=== PATIENT | female | born 1995 | race Two or more races ===

== ENCOUNTER 2017-07-30 19:01 | Emergency (ER) | payer OTHER ==
[~2017-07-30] VITALS: Ht 162.6 cm; Wt 58.5 kg
[~2017-07-30 19:01] MED LIST: BEN50 PO; HYDR-3011 PO; TRIA15CR52 TOP; TRIA15CR55 TOP
[2017-07-30 19:11] VITALS: Ht 162.6 cm; Wt 58.5 kg
[2017-07-30 22:03] LABS: URINE BLOOD (Dip) POC Negative (NEGATIVE)
--- NOTE | 2017-07-30 22:03 | ERD ---
ER Documentation Chief Complaint Chief Complaint pelvic pain [id number]. +preg. -vag bleed, -vag discharge HPI 22-year-old female presents here to emergency department for complaints of pelvic pain for 2 weeks. Patient just found out that she was yesterday. Patient denies any vaginal itching vaginal bleeding or vaginal discharge. Patient is 1 para 0 0. LMP 07/09/2017. Patient denies any hematuria or dysuria. Patient denies any fever chills. Patient described the pelvic pain as cramping pain, 4/10 scale, intermittent pain. ROS All systems reviewed and are negative except as per history of present illness. Medications Home Meds Active Scripts Diphenhydramine Hcl* (Benadryl*) 50 Mg Cap, 50 MG PO BEDSIDE MEDICATION Y for ITCHING, #30 Prov:ELIAN SCHERER PA-C 05/26/15 Triamcinolone Acetonide (Triamcinolone Acetonide) 0.1% - 15 Gm Cream.gm., 1 APPLIC TOP BID for 7 Days, TUB applya thin layer to affected areas twice a day for 1-2 weeks. Do not apply on face Prov:ELIAN SCHERER PA-C 05/26/15 Triamcinolone Acetonide* (Kenalog*) 0.5%-15GM Cr, 1 APPLIC TOP BID, #1 EA Prov:ABBIE CARABALLO NP 04/28/15 Hydroxyzine Hcl* (Hydroxyzine Hcl*) 25 Mg Tablet, 25 MG PO Q8H Y for ITCHING, # 30 TAB Prov:ABBIE CARABALLO NP 04/28/15 Allergies Allergies: Coded Allergies: No Known Allergy (Unverified , 07/30/17) PMhx/Soc Medical and Surgical Hx: pt denies Medical Hx, pt denies Surgical Hx History of Surgery: No Anesthesia Reaction: No Hx Neurological Disorder: No Hx Respiratory Disorders: No Hx Cardiac Disorders: No Hx Psychiatric Problems: No Hx Miscellaneous Medical Probl: No Hx Alcohol Use: No Hx Substance Use: No Hx Tobacco Use: No Smoking Status: Never smoker FmHx Family History: No coronary disease, No diabetes, No other Physical Exam Vitals Vital Signs Date Time Temp Pulse Resp B/P Pulse Ox O2 Delivery O2 Flow Rate FiO2 07/30/17 19:11 99.2 88 18 137/80 100 Physical Exam GENERAL: The patient is well developed and appropriate for usual state of health, in no apparent distress. CHEST: Clear to auscultation bilaterally. There are no rales, wheezes or rhonchi. HEART: Regular rate and rhythm. No murmurs, clicks, rubs or gallops. No S3 or S4. ABDOMEN: Soft, nontender and nondistended. Good bowel sounds. No rebound or guarding. No gross peritonitis. No gross organomegaly or masses. No Jeffries sign or McBurney point tenderness. BACK: No midline or flank tenderness. EXTREMITIES: Equal pulses bilaterally. There is no peripheral clubbing, cyanosis or edema. No focal swelling or erythema. Full range of motion. Grossly neurovascularly intact. NEURO: Alert and oriented. Cranial nerves 2-12 intact. Motor strength in all 4 extremities with 5/5 strength. Sensation grossly intact. Normal speech and gait. SKIN: There is no apparent rash or petechia. The skin is warm and dry. HEMATOLOGIC AND LYMPHATIC: There is no evidence of excessive bruising or lymphedema. No gross cervical, axillary, or inguinal lymphadenopathy. Result Diagram: 07/30/172 Results 24 hrs Laboratory Tests Test 07/30/17 21:55 07/30/17 22:03 07/30/17 22:22 Urine Color YELLOW Urine Clarity CLEAR Urine pH 5.0 Urine Specific [place] 1.025 Urine Ketones NEGATIVEmg/dL Urine Nitrite NEGATIVEmg/dL Urine Bilirubin NEGATIVEmg/dL Urine Urobilinogen NEGATIVEmg/dL Urine Leukocyte Esterase NEGATIVELeu/ul Urine Hemoglobin NEGATIVEmg/dL Urine Glucose NEGATIVEmg/dL Urine Total Protein NEGATIVEmg/dl Bedside Urine pH (LAB) 6.0 Bedside Urine Protein (LAB) Negative Bedside Urine Glucose (UA) Negative Bedside Urine Ketones (LAB) Negative Bedside Urine Blood Negative Bedside Urine Nitrite (LAB) Negative Bedside Urine Leukocyte Esterase (L Negative White Blood Count 7.510^3/ul Red Blood Count 4.1310^6/ul Hemoglobin 11.9g/dl Hematocrit 35.2% Mean Corpuscular Volume 85.2fl Mean Corpuscular Hemoglobin 28.8pg Mean Corpuscular Hemoglobin Concent 33.8g/dl Red Cell Distribution Width 13.2% Platelet Count 76991^3/UL Mean Platelet Volume 11.8fl Neutrophils % 59.2% Lymphocytes % 32.3% Monocytes % 6.7% Eosinophils % 0.8% Basophils % 0.7% Nucleated Red Blood Cells % 0.0/100WBC Neutrophils # 4.410^3/ul Lymphocytes # 2.410^3/ul Monocytes # 0.510^3/ul Eosinophils # 0.110^3/ul Basophils # 0.110^3/ul Nucleated Red Blood Cells # 0.010^3/ul Beta HCG, Quantitative 794.0mIU/ml PROCEDURE: Obstetrical ultrasound, limited. CLINICAL INDICATION: Pelvic pain. TECHNIQUE: Multiple sonographic images of the pelvis were obtained utilizing a transabdominal technique. The images were reviewed on a PACS workstation. The patient refused endovaginal scanning. COMPARISON: None. FINDINGS: The uterus is visualized and measures 6.5 x 4.2 x 7.1 cm. No abnormal uterine mass is identified. The endometrial echo complex is homogeneous and measures 16 mm. No intrauterine is identified. There is no evidence for free fluid. The right ovary measures 2.3 x 1.6 x 2.2 cm and demonstrates normal flow. The left ovary is not visualized. No adnexal masses are identified. IMPRESSION: Mildly thickened endometrium with no intrauterine identified. Clinical beta-hCG correlation and follow-up is recommended. Left ovary not visualized. .Roberto Yoo MD, MD Date Time Electronically viewed and signed by .Roberto Yoo MD, on 07/30/2017 22:29 .T/ CC: ABBIE CARABALLO NP On reevaluation of the patient, patient does not have any pelvic pain at this time, has been having only on and off pelvic pain. I discussed this case with OB Laborist, Dr. Wilson, recommended a 48 hour follow-up for beta-hCG repeat an ultrasound repeat. At this time, patient does not have any vaginal bleeding. There is low suspicion for ectopic . Based on history most likely is very early . Procedures/MDM Medical Decision Making: Patient symptoms of pelvic pain nonspecific at this time, patient possibly have an early . No symptoms of any ovarian torsion, no symptoms of any ovarian ectopic . Beta-hCG is mildly elevated, possibly consistent with early . Pain is controlled at this time, 48 hour follow-up was recommended by the OB Laborist. There is low suspicion for abdominal emergencies at this time. Patients abdominal exam is normal at this time. Patients radiology exam does not show any abdominal emergencies at this time. There is low suspicion for appendicitis, cholecystitis , abdominal aortic aneurysms or peritonitis at this time. There is low suspicion for sepsis. Patient appears well and is hemodynamically stable. Disposition: Home. Condition: Stable Prescription Tylenol, pills Instructions: Patient is advised to take medications as prescribed. Patient is advised to rest, increase fluid intake and do brat diet for next 1-2 days and progress as tolerated. Patient is advised that if symptoms are worse, severe abdominal pain, uncontrolled vomiting, high fever, severe flank pain, worst signs and symptoms, to return to the emergency department immediately. Otherwise , patient can follow up here in the emergency department in 48 hours for repeat testing. Disclaimer: Inadvertent spelling and grammatical errors are likely due to EHR/ dictation software use and do not reflect on the overall quality of patient care. Also, please note that the electronic time recorded on this note does not necessarily reflect the actual time of the patient encounter. Departure Diagnosis: Primary Impression: Pelvic pain Additional Impression: Positive test Condition: Stable Patient Instructions: Pelvic Pain, Unknown Cause Additional Instructions: Patient is advised to take medications as prescribed. Patient is advised to rest , increase fluid intake and do brat diet for next 1-2 days and progress as tolerated. Patient is advised that if symptoms are worse, severe abdominal pain , uncontrolled vomiting, high fever, severe flank pain, worst signs and symptoms , to return to the emergency department immediately. Otherwise, patient can follow up here in the emergency department in 48 hours for repeat testing. ABBIE CARABALLO NP Jul 30, 2017 22:03
[2017-07-30 22:22] LABS: ADD UMIC NO; UR ASCORBIC ACID NEGATIVE (NEGATIVE); UR BILIRUBIN (Dip) NEGATIVE (NEGATIVE); UR BLOOD (Dip) NEGATIVE (NEGATIVE); UR CLARITY CLEAR (CLEAR); UR COLOR YELLOW (YELLOW); UR GLUCOSE (Dip) NEGATIVE (NEGATIVE); UR KETONES (Dip) NEGATIVE (NEGATIVE); UR LEUKOCYTE ESTERASE (Dip) NEGATIVE Leu/ul (NEGATIVE); UR NITRITE (Dip) NEGATIVE (NEGATIVE); UR SPECIFIC GRAVITY (Dip) 1.025 (1.003-1.030); UR TOTAL PROTEIN (Dip) NEGATIVE (NEGATIVE); UR UROBILINOGEN (Dip) NEGATIVE (NEGATIVE)
--- NOTE | 2017-07-30 22:29 | RADRPT ---
PROCEDURE: Obstetrical ultrasound, limited. CLINICAL INDICATION: Pelvic pain. TECHNIQUE: Multiple sonographic images of the pelvis were obtained utilizing a transabdominal candido hnique. The images were reviewed on a PACS workstation. The patient refused endovaginal scanning. COMPARISON: None. FINDINGS: The uterus is visualized and measures 6.5 x 4.2 x 7.1 cm. No abnormal uterine mass is identified. T he endometrial echo complex is homogeneous and measures 16 mm. No intrauterine is identifi ed. There is no evidence for free fluid. The right ovary measures 2.3 x 1.6 x 2.2 cm and demonstrates n ormal flow. The left ovary is not visualized. No adnexal masses are identified. IMPRESSION: Mildly thickened endometrium with no intrauterine identified. Clinical beta-hCG correlatio n and follow-up is recommended. Left ovary not visualized. .Roberto Yoo MD, MD Date Time Electronically viewed and signed by .Roberto Yoo MD, MD on 07/30/2017 22:29 .T/
[2017-07-30 22:45] LABS: BASOPHIL # 0.1 10^3/ul (0.0-0.1); BASOPHILS % 0.7 % (0.0-2.0); EOSINOPHILS # 0.1 10^3/ul (0.0-0.5); EOSINOPHILS % 0.8 % (0.0-7.0); HEMATOCRIT 35.2 % (37.0-47.0); HEMOGLOBIN 11.9 g/dl (12.0-16.0); LYMPHOCYTES # 2.4 10^3/ul (0.8-2.9); LYMPHOCYTES % 32.3 % (15.0-51.0); MEAN CORPUSCULAR HEMOGLOBIN 28.8 pg (29.0-33.0); MEAN CORPUSCULAR HGB CONC 33.8 g/dl (32.0-37.0); MEAN CORPUSCULAR VOLUME 85.2 fl (82.0-101.0); MEAN PLATELET VOLUME 11.8 fl (7.4-10.4); MONOCYTE # 0.5 10^3/ul (0.3-0.9); MONOCYTES % 6.7 % (0.0-11.0); NEUTROPHIL # 4.4 10^3/ul (1.6-7.5); NEUTROPHILS % 59.2 % (39.0-77.0); PLATELET COUNT 245 10^3/UL (140-415); RED BLOOD COUNT 4.13 10^6/ul (4.20-5.40); RED CELL DISTRIBUTION WIDTH 13.2 % (11.5-14.5); WHITE BLOOD COUNT 7.5 10^3/ul (4.8-10.8)
[2017-07-31] MEDS ORDERED: ACET500C5 PO (00:01)
[2017-07-31 00:29] VITALS: BP 131/76; PULSE 84; RESP 18; TEMP 98.8
== END 2017-07-31 00:30 | disposition home or self-care (01) ==
LOC: FTE 19:01
DX: O26.891 Other specified pregnancy related conditions, first trimester (principal); R10.2 Pelvic and perineal pain; Z3A.01 Less than 8 weeks gestation of pregnancy
CPT/HCPCS: 76801; 81003; 84702; 85025; 86900; 86901; Z7502

== ENCOUNTER 2017-08-10 07:23 | Emergency (ER) | payer OTHER ==
[~2017-08-10] VITALS: Ht 152.4 cm; Wt 58.0 kg
[~2017-08-10 07:23] MED LIST changes: +ACET500C5 PO
[2017-08-10 07:26] VITALS: Ht 152.4 cm; Wt 58.0 kg
[2017-08-10 09:26] LABS: ADD UMIC NO; UR ASCORBIC ACID NEGATIVE (NEGATIVE); UR BILIRUBIN (Dip) NEGATIVE (NEGATIVE); UR BLOOD (Dip) NEGATIVE (NEGATIVE); UR CLARITY CLEAR (CLEAR); UR COLOR YELLOW (YELLOW); UR GLUCOSE (Dip) NEGATIVE (NEGATIVE); UR KETONES (Dip) NEGATIVE (NEGATIVE); UR LEUKOCYTE ESTERASE (Dip) NEGATIVE Leu/ul (NEGATIVE); UR NITRITE (Dip) NEGATIVE (NEGATIVE); UR SPECIFIC GRAVITY (Dip) 1.017 (1.003-1.030); UR TOTAL PROTEIN (Dip) NEGATIVE (NEGATIVE); UR UROBILINOGEN (Dip) NEGATIVE (NEGATIVE)
[2017-08-10 09:27] LABS: BASOPHILS % 0.5 % (0.0-2.0); EOSINOPHILS % 0.7 % (0.0-7.0); HEMATOCRIT 36.3 % (37.0-47.0); HEMOGLOBIN 12.2 g/dl (12.0-16.0); LYMPHOCYTES # 1.9 10^3/ul (0.8-2.9); LYMPHOCYTES % 33.9 % (15.0-51.0); MEAN CORPUSCULAR HEMOGLOBIN 29.2 pg (29.0-33.0); MEAN CORPUSCULAR HGB CONC 33.6 g/dl (32.0-37.0); MEAN CORPUSCULAR VOLUME 86.8 fl (82.0-101.0); MEAN PLATELET VOLUME 11.3 fl (7.4-10.4); MONOCYTE # 0.3 10^3/ul (0.3-0.9); MONOCYTES % 5.3 % (0.0-11.0); NEUTROPHIL # 3.3 10^3/ul (1.6-7.5); NEUTROPHILS % 59.4 % (39.0-77.0); PLATELET COUNT 237 10^3/UL (140-415); RED BLOOD COUNT 4.18 10^6/ul (4.20-5.40); WHITE BLOOD COUNT 5.5 10^3/ul (4.8-10.8)
[2017-08-10 09:46] LABS: ALBUMIN 4.3 g/dl (3.3-4.9); ALBUMIN/GLOBULIN RATIO 1.34; BILIRUBIN,INDIRECT 0.3 mg/dl (0-1.1); BILIRUBIN,TOTAL 0.3 mg/dl (0.2-1.3); CALCIUM 9.2 mg/dl (8.4-10.2); CREATININE 0.49 mg/dl (0.44-1.00); POTASSIUM 3.6 mmol/L (3.5-5.1); TOTAL PROTEIN 7.5 g/dl (6.1-8.1)
[2017-08-10 09:52] LABS: INR 0.92; PROTIME 12.4 Sec (11.9-14.9)
[2017-08-10 09:53] LABS: PARTIAL THROMBOPLASTIN TIME 30.3 Sec (25.0-35.0)
--- NOTE | 2017-08-10 10:16 | RADRPT ---
PROCEDURE: US OB. CLINICAL INDICATION: Vaginal bleeding in . TECHNIQUE: Transabdominal and endovaginal imaging of the uterus is available for review COMPARISON: US PELVIS 07/30/2017 FINDINGS: There is a single intrauterine with a mean sac diameter of 1.3 cm, giving an estimated ges tational age of 6 weeks 0 days by ultrasound criteria. No pole is detected. A yolk sac is pre sent. A small subchorionic hemorrhage is identified. The ovaries demonstrate a left ovarian corpus l uteum cyst. IMPRESSION: 1. Single intrauterine with an estimated gestational age of 6 weeks 0 days by ultrasound criteria. No pole is identified, likely secondary to early dates. Repeat pelvic ultrasound is recommended in 1 week. 2. Small subchorionic hemorrhage. RPTAT: HH .Janet Spring MD, Date Time Electronically viewed and signed by .Janet Spring MD, on 08/10/2017 10:15 .G/
--- NOTE | 2017-08-10 11:11 | ERD ---
ER Documentation Chief Complaint Chief Complaint vag bleed started today , 5 weeks preg HPI 22-year-old female who presents emergency department for vaginal spotting, bleeding today. Stated that she is 5 weeks . Denies headache, dizziness, blurred vision, neck pain, shoulder pain, chest pain, back pain, nausea, vomiting, diarrhea, constipation, dysuria, being sexually active, trauma , injury, falls, recent travel, recent exposure to any illness, recent antibiotic use in the last 3 months, fever, chills. LMP: 07/01/2017. PATRICA: 04/03/2018. A0. ROS All systems reviewed and are negative except as per history of present illness. Medications Home Meds Active Scripts Vit W-Ca,Fe,FA(<1 mg) ( Vitamins) 1 Each Tablet, 1 EACH PO DAILY, #30 TAB Prov:KATARINAILADAVE DEL ROSARIOAR F 08/10/17 Acetaminophen* (Tylophen*) 500 Mg Capsule, 1 CAP PO Q6H Y for PAIN AND OR ELEVATED TEMP, #20 CAP Prov:KATARINAILADAVE DEL ROSARIOAR F 08/10/17 Acetaminophen* (Tylophen*) 500 Mg Capsule, 1 CAP PO Q6H Y for PAIN AND OR ELEVATED TEMP, #20 CAP Prov:ABBIE CARABALLO NP 07/31/17 Diphenhydramine Hcl* (Benadryl*) 50 Mg Cap, 50 MG PO BEDSIDE MEDICATION Y for ITCHING, #30 Prov:ELIAN SCHERER PA-C 05/26/15 Triamcinolone Acetonide (Triamcinolone Acetonide) 0.1% - 15 Gm Cream.gm., 1 APPLIC TOP BID for 7 Days, TUB applya thin layer to affected areas twice a day for 1-2 weeks. Do not apply on face Prov:ELIAN SCHERER PA-C 05/26/15 Triamcinolone Acetonide* (Kenalog*) 0.5%-15GM Cr, 1 APPLIC TOP BID, #1 EA Prov:ABBIE CARABALLO NP 04/28/15 Hydroxyzine Hcl* (Hydroxyzine Hcl*) 25 Mg Tablet, 25 MG PO Q8H Y for ITCHING, # 30 TAB Prov:ABBIE CARABALLO NP 04/28/15 Allergies Allergies: Coded Allergies: No Known Allergy (Unverified , 08/10/17) PMhx/Soc Medical and Surgical Hx: pt denies Medical Hx, pt denies Surgical Hx History of Surgery: No Anesthesia Reaction: No Hx Neurological Disorder: No Hx Respiratory Disorders: No Hx Cardiac Disorders: No Hx Psychiatric Problems: No Hx Miscellaneous Medical Probl: No Hx Alcohol Use: No Hx Substance Use: No Hx Tobacco Use: No Smoking Status: Never smoker Physical Exam Vitals Vital Signs Date Time Temp Pulse Resp B/P Pulse Ox O2 Delivery O2 Flow Rate FiO2 08/10/17 07:26 98.0 16 71 96/49 99 Physical Exam Const: Well-appearing. Not in acute respiratory distress. Head: Atraumatic Eyes: Normal Conjunctiva ENT: Normal External Ears, Nose and Mouth. Neck: Full range of motion..~ No meningismus. Resp: Clear to auscultation bilaterally Cardio: Regular rate and rhythm, no murmurs Abd: Soft, non tender, non distended. Normal bowel sounds Skin: No petechiae or rashes. No skin tenting. No signs of dehydration. Skin appears normal for her initially. Back: No midline or flank tenderness. No CVA tenderness. Ext: No cyanosis, or edema. Neur: Awake and alert. No neurological deficits. Psych: Normal Mood and Affect Result Diagram: 08/10/17 0911 08/10/17 0911 Results 24 hrs Laboratory Tests Test 08/10/17 09:00 08/10/17 09:11 Urine Color YELLOW Urine Clarity CLEAR Urine pH 5.0 Urine Specific [place] 1.017 Urine Ketones NEGATIVEmg/dL Urine Nitrite NEGATIVEmg/dL Urine Bilirubin NEGATIVEmg/dL Urine Urobilinogen NEGATIVEmg/dL Urine Leukocyte Esterase NEGATIVELeu/ul Urine Hemoglobin NEGATIVEmg/dL Urine Glucose NEGATIVEmg/dL Urine Total Protein NEGATIVEmg/dl White Blood Count 5.510^3/ul Red Blood Count 4.1810^6/ul Hemoglobin 12.2g/dl Hematocrit 36.3% Mean Corpuscular Volume 86.8fl Mean Corpuscular Hemoglobin 29.2pg Mean Corpuscular Hemoglobin Concent 33.6g/dl Red Cell Distribution Width 13.0% Platelet Count 52335^3/UL Mean Platelet Volume 11.3fl Neutrophils % 59.4% Lymphocytes % 33.9% Monocytes % 5.3% Eosinophils % 0.7% Basophils % 0.5% Nucleated Red Blood Cells % 0.0/100WBC Neutrophils # 3.310^3/ul Lymphocytes # 1.910^3/ul Monocytes # 0.310^3/ul Eosinophils # 0.010^3/ul Basophils # 0.010^3/ul Nucleated Red Blood Cells # 0.010^3/ul Prothrombin Time 12.4Sec Prothrombin Time Ratio 1.0 INR International Normalized Ratio 0.92 Activated Partial Thromboplast Time 30.3Sec Sodium Level 139mmol/L Potassium Level 3.6mmol/L Chloride Level 104mmol/L Carbon Dioxide Level 24mmol/L Anion Gap 15 Blood Urea Nitrogen 6mg/dl Creatinine 0.49mg/dl Glucose Level 93mg/dl Calcium Level 9.2mg/dl Total Bilirubin 0.3mg/dl Direct Bilirubin 0.00mg/dl Indirect Bilirubin 0.3mg/dl Aspartate Amino Transf (AST/SGOT) 20IU/L Alanine Aminotransferase (ALT/SGPT) 27IU/L Alkaline Phosphatase 55IU/L Total Protein 7.5g/dl Albumin 4.3g/dl Globulin 3.20g/dl Albumin/Globulin Ratio 1.34 Amylase Level 65U/L Lipase 48U/L Beta HCG, Quantitative 89460.0mIU/ml Procedures/MDM OB ultrasound: Single intrauterine with an estimated gestational age of 6 weeks 0 days by ultrasound criteria. No pole is identified, likely secondary to early dates. Repeat pelvic ultrasound is recommended in 1 week. Small subchorionic hemorrhage. Type and Rh: A+. Beta hCG quantitative: 16,722.0 Blood works: Unremarkable. Urinalysis: Unremarkable. Differential diagnosis: I have low suspicion for ectopic given the ultrasound result, hemorrhagic shock given the patient denies active bleeding at this time and her skin appears normal, vital signs are unremarkable. Final diagnosis: Vaginal bleeding in . Prescription: Tylenol. vitamins. Follow-up with OB in the next 24-48 hours for a reevaluation and repeat ultrasound and blood works. Come back here in the emergency department for any new symptoms or any worsening symptoms. All questions and concerns are answered. Patient verbalized understanding and agreed with the plan of care. Reevaluation: Patient denies active bleeding. Denies pain. Hemodynamically stable on discharge. Departure Diagnosis: Primary Impression: Vaginal bleeding in patient at less than 20 weeks gestation Condition: Stable Additional Instructions: Follow-up with OB in the next 24-48 hours for a reevaluation and repeat ultrasound and blood works. Come back here in the emergency department for any new symptoms or any worsening symptoms. All questions and concerns are answered. Patient verbalized understanding and agreed with the plan of care. MARYSE ANAYA Aug 10, 2017 11:11
[2017-08-10] MEDS ORDERED: ACET500C5 PO (11:12)
[2017-08-10] MEDS ORDERED: PREN1TAB79 PO (11:14)
== END 2017-08-10 11:30 | disposition home or self-care (01) ==
LOC: FTE 07:23
DX: O20.9 Hemorrhage in early pregnancy, unspecified (principal); R10.2 Pelvic and perineal pain; Z3A.01 Less than 8 weeks gestation of pregnancy
CPT/HCPCS: 76801; 76817; 80053; 81003; 82150; 83690; 84702; 85025; 85610; 85730; 86900; 86901; 87086; Z7502

== ENCOUNTER 2017-08-13 09:29 | Emergency (ER) | payer OTHER ==
[~2017-08-13] VITALS: Ht 154.9 cm; Wt 58.2 kg
[~2017-08-13 09:29] MED LIST changes: +PREN1TAB79 PO
[2017-08-13 09:30] VITALS: Ht 154.9 cm; Wt 58.2 kg
--- NOTE | 2017-08-13 11:16 | RADRPT ---
AMENDMENT: 08/13/2017 11:25:18 AM Janet Spring M.d PROCEDURE: US OB. CLINICAL INDICATION: Vaginal bleeding in . TECHNIQUE: Transabdominal and endovaginal imaging of the gravid uterus is available for review COMPARISON: US PELVIS 08/10/2017 FINDINGS: There is a single intrauterine with a crown-rump length of 0.3 cm, giving an estimated ges tational age of 6 weeks 0 days by ultrasound criteria. No heart tones are detected. No subch orionic hemorrhage is identified. The ovaries are unremarkable. IMPRESSION: Single intrauterine with an estimated gestational age of 6 weeks 0 days by ultrasound crit eria. No heart tones are detected, which may be secondary to early dates. Repeat pelvic ultra sound is recommended in 1 week. RPTAT: PROCEDURE: US OB. CLINICAL INDICATION: Vaginal bleeding in . TECHNIQUE: Transabdominal and endovaginal imaging of the gravid uterus is available for review COMPARISON: None available FINDINGS: There is a single intrauterine with a crown-rump length of 0.3 cm, giving an estimated ges tational age of 6 weeks 0 days by ultrasound criteria. No heart tones are detected. No subch orionic hemorrhage is identified. The ovaries are unremarkable. IMPRESSION: Single intrauterine with an estimated gestational age of 6 weeks 0 days by ultrasound crit eria. No heart tones are detected. Findings are suspicious for early failed . Repe at pelvic ultrasound is recommended in 1 week. RPTAT: .Janet Spring MD, MD Date Time Electronically viewed and signed by .Janet Spring MD, on 08/13/2017 11:25 .G/
--- NOTE | 2017-08-13 12:07 | ERD ---
ER Documentation Chief Complaint Chief Complaint VAG BLEED , ONSET TODAY , LMP 06/27/17 HPI This 22-year-old female who is a is here for vaginal bleeding. The patient was seen here 3 days ago for vaginal bleeding had an ultrasound that demonstrated a 6 week but there are no crown-rump length identified within hCG of 16,500 approximately. The patient states that she woke this morning with a little bit heavier bleeding is considered to be mild and is a bit more than spotting some mild cramps but no clots or discharge or syncope or back pain. Patient says she has no pain at this time ROS All systems reviewed and are negative except as per history of present illness. Medications Home Meds Active Scripts Vit W-Ca,Fe,FA(<1 mg) ( Vitamins) 1 Each Tablet, 1 EACH PO DAILY, #30 TAB Prov:KATARINAILADAVE DEL ROSARIOAR F 08/10/17 Acetaminophen* (Tylophen*) 500 Mg Capsule, 1 CAP PO Q6H Y for PAIN AND OR ELEVATED TEMP, #20 CAP Prov:DAVE ANAYAAR F 08/10/17 Acetaminophen* (Tylophen*) 500 Mg Capsule, 1 CAP PO Q6H Y for PAIN AND OR ELEVATED TEMP, #20 CAP Prov:ABBIE CARABALLO NP 07/31/17 Diphenhydramine Hcl* (Benadryl*) 50 Mg Cap, 50 MG PO BEDSIDE MEDICATION Y for ITCHING, #30 Prov:ELIAN SCHERER PA-C 05/26/15 Triamcinolone Acetonide (Triamcinolone Acetonide) 0.1% - 15 Gm Cream.gm., 1 APPLIC TOP BID for 7 Days, TUB applya thin layer to affected areas twice a day for 1-2 weeks. Do not apply on face Prov:ELIAN SCHERER PA-C 05/26/15 Triamcinolone Acetonide* (Kenalog*) 0.5%-15GM Cr, 1 APPLIC TOP BID, #1 EA Prov:ABBIE CARABALLO NP 04/28/15 Hydroxyzine Hcl* (Hydroxyzine Hcl*) 25 Mg Tablet, 25 MG PO Q8H Y for ITCHING, # 30 TAB Prov:ABBIE CARABALLO NP 04/28/15 Allergies Allergies: Coded Allergies: No Known Allergy (Unverified , 08/10/17) PMhx/Soc History of Surgery: No Anesthesia Reaction: No Hx Neurological Disorder: No Hx Respiratory Disorders: No Hx Cardiac Disorders: No Hx Psychiatric Problems: No Hx Miscellaneous Medical Probl: No Hx Alcohol Use: No Hx Substance Use: No Hx Tobacco Use: No FmHx Family History: No coronary disease Physical Exam Vitals Vital Signs Date Time Temp Pulse Resp B/P Pulse Ox O2 Delivery O2 Flow Rate FiO2 08/13/17 09:30 98.4 60 16 106/59 100 Physical Exam Const: Well-developed, well-nourished Head: Atraumatic, normocephalic Eyes: Normal Conjunctiva, PERRLA, EOMI, normal sclera, no nystagmus ENT: Normal External Ears, Nose and Mouth, moist mucus membranes. Neck: Full range of motion. No meningismus, no lymphadenopathy.Well- developed, well-nourishedAtraumatic, normocephalicNormal Conjunctiva, PERRLA, EOMI, normal sclera, no nystagmusNormal External Ears, Nose and Mouth, moist mucus membranes.Full range of motion. No meningismus, no lymphadenopathy.Clear to auscultation bilaterally, no wheezing, rhonchi, rales Resp: Clear to auscultation bilaterally, no wheezing, rhonchi, rales Cardio: Regular rate and rhythm, no murmurs, S1 S2 present Abd: Soft, non tender x 4, non distended. Normal bowel sounds, no guarding or rebound, no pulsitile abdominal masses or bruits Skin: No petechiae or rashes, no ecchymosis , no maculopapular rash Back: No midline or flank tenderness Ext: No cyanosis, or edema, FROM x 4, normal inspection, neurovascularly intact x 4 Neur: Awake and alert, STR 5/5 x 4, sensation intact x 4, no focal findings, cerebellum intact Psych: Normal Mood and Affect Results 24 hrs Laboratory Tests Test 08/13/17 09:55 Beta HCG, Quantitative 12246.0mIU/ml Procedures/MDM AMENDMENT: 08/13/2017 11:25:18 AM Janet Spring M.d PROCEDURE: US OB. CLINICAL INDICATION: Vaginal bleeding in . TECHNIQUE: Transabdominal and endovaginal imaging of the gravid uterus is available for review COMPARISON: US PELVIS 08/10/2017 FINDINGS: There is a single intrauterine with a crown-rump length of 0.3 cm, giving an estimated gestational age of 6 weeks 0 days by ultrasound criteria. No heart tones are detected. No subchorionic hemorrhage is identified. The ovaries are unremarkable. IMPRESSION: Single intrauterine with an estimated gestational age of 6 weeks 0 days by ultrasound criteria. No heart tones are detected, which may be secondary to early dates. Repeat pelvic ultrasound is recommended in 1 week. RPTAT: PROCEDURE: US OB. CLINICAL INDICATION: Vaginal bleeding in . TECHNIQUE: Transabdominal and endovaginal imaging of the gravid uterus is available for review COMPARISON: None available FINDINGS: There is a single intrauterine with a crown-rump length of 0.3 cm, giving an estimated gestational age of 6 weeks 0 days by ultrasound criteria. No heart tones are detected. No subchorionic hemorrhage is identified. The ovaries are unremarkable. IMPRESSION: Single intrauterine with an estimated gestational age of 6 weeks 0 days by ultrasound criteria. No heart tones are detected. Findings are suspicious for early failed . Repeat pelvic ultrasound is recommended in 1 week. RPTAT: .Janet Spring MD, Date Time Electronically viewed and signed by .Janet Spring MD, on 08/13/2017 11 :25 .G/ CC: MARTHA SENA DO Patient's hCG is risen to 23,000, blood type is A+, ultrasound shows a 6 week but there is no heart tones. His possible heart tones are missed on the last ultrasound or the patient had a live that is now demise. Patient's hCG is high enough that he should see a heartbeat as well as the size is big enough that he should see a heartbeat. Patient likely has a demise. Did advise her however to get a repeat hCG in 2 days to confirm this likely need another ultrasound as there is discrepancy in the past 2 ultrasounds and hCG risings. Gave her vaginal bleeding precautions and signs and symptoms for which to return Departure Diagnosis: Primary Impression: Missed Condition: Stable Patient Instructions: Missed Miscarriage MARTHA SENA DO Aug 13, 2017 12:07
== END 2017-08-13 13:23 | disposition home or self-care (01) ==
LOC: FTE 09:29
DX: O02.1 Missed abortion (principal)
CPT/HCPCS: 36415; 76801; 76817; 84702; 86900; 86901; Z7502

== ENCOUNTER 2017-08-16 10:36 | Emergency (ER) | payer OTHER ==
[~2017-08-16] VITALS: Wt 59.3 kg
--- NOTE | 2017-08-16 11:09 | ERD ---
ER Documentation Chief Complaint Chief Complaint PT HERE FOR RECHECH FOR , VAG SPOTTING, NO PAIN HPI 22-year-old female, recently seen 3 days ago with a 6 week single intrauterine without heart tones comes to emergency department for recheck for vaginal spotting. Patient describes very slight vaginal spotting but no pelvic pain. She was told that she had no heart tones seen on the ultrasound, is here for recheck. She has no complaints, she denies chest pain, shortness breath, dizziness. She denies fevers or chills. ROS All systems reviewed and are negative except as per history of present illness. Medications Home Meds Active Scripts Vit W-Ca,Fe,FA(<1 mg) ( Vitamins) 1 Each Tablet, 1 EACH PO DAILY, #30 TAB Prov:PASILABAN,KLAR F 08/10/17 Acetaminophen* (Tylophen*) 500 Mg Capsule, 1 CAP PO Q6H Y for PAIN AND OR ELEVATED TEMP, #20 CAP Prov:PASILABAN,KLAR F 08/10/17 Acetaminophen* (Tylophen*) 500 Mg Capsule, 1 CAP PO Q6H Y for PAIN AND OR ELEVATED TEMP, #20 CAP Prov:ABBIE CARABALLO NP 07/31/17 Diphenhydramine Hcl* (Benadryl*) 50 Mg Cap, 50 MG PO BEDSIDE MEDICATION Y for ITCHING, #30 Prov:ELIAN SCHERER PA-C 05/26/15 Triamcinolone Acetonide (Triamcinolone Acetonide) 0.1% - 15 Gm Cream.gm., 1 APPLIC TOP BID for 7 Days, TUB applya thin layer to affected areas twice a day for 1-2 weeks. Do not apply on face Prov:ELIAN SCHERER PA-C 05/26/15 Triamcinolone Acetonide* (Kenalog*) 0.5%-15GM Cr, 1 APPLIC TOP BID, #1 EA Prov:ABBIE CARABALLO NP 04/28/15 Hydroxyzine Hcl* (Hydroxyzine Hcl*) 25 Mg Tablet, 25 MG PO Q8H Y for ITCHING, # 30 TAB Prov:ABBIE CARABALLO NP 04/28/15 Allergies Allergies: Coded Allergies: No Known Allergy (Unverified , 08/16/17) PMhx/Soc Medical and Surgical Hx: pt denies Medical Hx, pt denies Surgical Hx History of Surgery: No Anesthesia Reaction: No Hx Neurological Disorder: No Hx Respiratory Disorders: No Hx Cardiac Disorders: No Hx Psychiatric Problems: No Hx Miscellaneous Medical Probl: No Hx Alcohol Use: No Hx Substance Use: No Hx Tobacco Use: No Smoking Status: Never smoker Physical Exam Vitals Vital Signs Date Time Temp Pulse Resp B/P Pulse Ox O2 Delivery O2 Flow Rate FiO2 08/16/17 10:39 98.1 104 18 134/62 100 Physical Exam General: Well-developed, well-nourished. The patient appears in no acute distress. HEENT: Head is normocephalic, atraumatic. No scleral icterus. Neck: Supple. Nontender. Lungs: Clear to auscultation. Normal air movement. Heart: Regular rate and rhythm. S1 and S2 are normal. No murmurs, gallops, or rubs. Abdomen: Soft, nontender, nondistended. Bowel sounds are normoactive. Extremities: No clubbing or cyanosis. Normal pulses. Moving extremities x 4. No weakness. Neurologic: Alert and oriented 3. No focal deficits. Skin: Normal turgor. No rash or lesions. Result Diagram: 08/16/17 1055 Results 24 hrs Laboratory Tests Test 08/16/17 10:55 White Blood Count 5.810^3/ul Red Blood Count 4.3010^6/ul Hemoglobin 12.5g/dl Hematocrit 37.7% Mean Corpuscular Volume 87.7fl Mean Corpuscular Hemoglobin 29.1pg Mean Corpuscular Hemoglobin Concent 33.2g/dl Red Cell Distribution Width 13.0% Platelet Count 83243^3/UL Mean Platelet Volume 12.8fl Neutrophils % 61.2% Lymphocytes % 32.6% Monocytes % 5.2% Eosinophils % 0.3% Basophils % 0.5% Nucleated Red Blood Cells % 0.0/100WBC Neutrophils # 3.510^3/ul Lymphocytes # 1.910^3/ul Monocytes # 0.310^3/ul Eosinophils # 0.010^3/ul Basophils # 0.010^3/ul Nucleated Red Blood Cells # 0.010^3/ul Beta HCG, Quantitative 03196.0mIU/ml Procedures/MDM MEDICAL DECISION MAKIN-year-old female comes to recheck for recently diagnosed missed . Her previous visit on July 30 that her beta quantitative hCG was 794, no evidence of intrauterine at the time, and type and Rh was A+. Then she presented again on August 10 with a beta quant of 16,722 with an IUP at 6 weeks, no heart tones, with positive subchorionic hemorrhage. Then on August 13 she presented again with a beta quant of 23,519 with a 6 week 0 days single intrauterine with no heart tones. Today her beta quantitative hCG has increased to over 30,000 from the previous 23,000. Due to this, I have advised patient that we may need another ultrasound today to compare from the previous study. She states "I don't want another ultrasound". She tells me she has an appointment in 4-5 days with her doctor who is Dr. Pedraza she prefers to do another ultrasound within a week's period of time for since last one. I do agree that this is appropriate given that she has not had any signs of ectopic , and her previous ultrasound did show an IUP although no heart tones. She is hemodynamically stable, her CBC is normal and she will be discharged home with copies of her workup today. Departure Diagnosis: Primary Impression: Vaginal bleeding in patient at less than 20 weeks gestation Condition: JOSEPHINE Joy PA-C Aug 16, 2017 11:09
[2017-08-16 11:53] LABS: BASOPHILS % 0.5 % (0.0-2.0); EOSINOPHILS % 0.3 % (0.0-7.0); HEMATOCRIT 37.7 % (37.0-47.0); HEMOGLOBIN 12.5 g/dl (12.0-16.0); LYMPHOCYTES # 1.9 10^3/ul (0.8-2.9); LYMPHOCYTES % 32.6 % (15.0-51.0); MEAN CORPUSCULAR HEMOGLOBIN 29.1 pg (29.0-33.0); MEAN CORPUSCULAR HGB CONC 33.2 g/dl (32.0-37.0); MEAN CORPUSCULAR VOLUME 87.7 fl (82.0-101.0); MEAN PLATELET VOLUME 12.8 fl (7.4-10.4); MONOCYTE # 0.3 10^3/ul (0.3-0.9); MONOCYTES % 5.2 % (0.0-11.0); NEUTROPHIL # 3.5 10^3/ul (1.6-7.5); NEUTROPHILS % 61.2 % (39.0-77.0); PLATELET COUNT 172 10^3/UL (140-415); WHITE BLOOD COUNT 5.8 10^3/ul (4.8-10.8)
== END 2017-08-16 13:20 | disposition home or self-care (01) ==
LOC: FTE 10:36
DX: O20.9 Hemorrhage in early pregnancy, unspecified (principal); Z3A.01 Less than 8 weeks gestation of pregnancy
CPT/HCPCS: 36415; 84702; 85025; Z7502; 99283

== ENCOUNTER 2017-08-30 11:11 | Emergency (ER) | END 2017-08-30 14:57 | disposition home or self-care (01) ==

== ENCOUNTER 2018-11-03 13:13 | Outpatient (CLI) | payer OTHER ==
[~2018-11-03] VITALS: Ht 149.9 cm; Wt 69.9 kg
[~2018-11-03 13:13] MED LIST changes: -HYDR-3011 PO; +HYDR-843 PO
[2018-11-03 14:05] VITALS: BP 109/68; PULSE 68; RESP 18; Ht 149.9 cm; Wt 69.9 kg
--- NOTE | 2018-11-03 16:38 | PN ---
Triage Information Date/Time Reason for visit: Uterine contractions Weeks of Gestation 39+ /Para 1/0 Diabetes: none Hypertention: none Objective Vital Signs Date Temp Pulse Resp B/P (MAP) Pulse Ox O2 O2 Flow FiO2 Time Delivery Rate 11/03/18 98.5 68 18 109/68 Room Air 14:05 (82) Heart Rate: 140's Contractions: 6-10 Minutes Apart Disposition: Discharge Assessment/Plan CX closed wants her to get discharged and return in 2 days for NST BPP Precautions discussed Questions discussed Follow up with her provider JUAN RIOS M.D. Nov 03, 2018 16:38
--- NOTE | 2018-11-03 16:59 | TRIAGE ---
OB Triage Datetime Report Generated by CPN: 11/03/2018 16:59 Datetime: 11/03/2018 15:57 Labor Evaluation Frequency: IRREGULAR Monitor Mode: External Duration (sec)2399: 60-110 Quality: Mild Pattern: Normal: <= 5 Contractions in 10 Minutes Resting Tone [place]: Relaxed Heart Rate FHR Baseline Rate: 135 Monitor Mode: External US FHR Baseline Changes: No Baseline Change Variability: Moderate 6-25 bpm Accelerations: 15X15 Decelerations: None Category: Category II Datetime: 11/03/2018 15:03 Labor Evaluation Frequency: IRREGULAR Monitor Mode: External Duration (sec)2399: 60-100 Quality: Mild Pattern: Normal: <= 5 Contractions in 10 Minutes Resting Tone [place]: Relaxed Heart Rate FHR Baseline Rate: 140 Monitor Mode: External US FHR Baseline Changes: No Baseline Change Variability: Moderate 6-25 bpm Accelerations: 15X15 Decelerations: None Category: Category I Datetime: 11/03/2018 14:13 Labor Evaluation Frequency: IRREGULAR Monitor Mode: External Duration (sec)2399: 60-70 Quality: Mild Pattern: Normal: <= 5 Contractions in 10 Minutes Resting Tone [place]: Relaxed Heart Rate FHR Baseline Rate: 145 Monitor Mode: External US Variability: Moderate 6-25 bpm Accelerations: 15X15 Decelerations: None Category: Category I Datetime: 11/03/2018 14:12 Assessment Type: Triage Maternal Assessment Level of Consciousness: Fully Conscious DTR's/Clonus: DTRs 2+; No Clonus Headache: Denies Blurred Vision: No Respiratory Effort: Unlabored; Regular Rhythm; Equal Expansion Breath Sounds, Left: Clear and Equal Breath Sounds, Right: Clear and Equal Nausea/Vomiting: Denies RUQ Epigastric Pain: Denies Lower Extremities Edema: None Degree: None Upper Extremities Edema: None Degree: None Facial Edema: None Fall Risk Assessment History of Falling: (0) No Secondary Diagnosis: (0) No Ambulatory Aid: (0) Bedrest/Nurse Assist IV Therapy: (0) No Gait: (0) Normal/Bedrest/Immobile Mental Status: (0) Oriented to Own Ability Fall Score: 0 Fall Risk Score Definition: No Risk: No action required Datetime: 11/03/2018 14:09 Time of Arrival: 11/03/2018 13:08 EGA: 39.5 Arrived By: Ambulatory Arrived From: Home Chief Complaint: UC'S DURING THE NIGHT Movement: Present Contractions: Denies/Absent Rupture of Membranes: Denies Vaginal Bleeding: None Vaginal Discharge: Denies Recent Sexual Intercouse: Denies Abdominal Trauma: Not Applicable Patient Complaints: Contractions; Other Initial Plan: NST AND BPP Datetime: 11/03/2018 14:02 Vaginal Exam Dilatation (cms): 1.0 Effacement (%): 30 Station: -2 Exam By: Kenisha ABREU
== END 2018-11-03 16:42 | disposition home or self-care (01) ==
LOC: OBT 13:13 → L-D 13:15 → OBT 16:42
PROVIDERS: ATTEND Obstetrics & Gynecology
DX: O47.1 False labor at or after 37 completed weeks of gestation (principal); Z3A.39 39 weeks gestation of pregnancy
CPT/HCPCS: 76818; Z7500; G0463

== ENCOUNTER 2018-11-05 03:34 | Inpatient (IN) | payer OTHER ==
[~2018-11-05] VITALS: Ht 149.9 cm; Wt 70.1 kg
[~2018-11-05 03:34] MED LIST changes: -ACET500C5 PO; -BEN50 PO; -HYDR-843 PO; -TRIA15CR52 TOP; -TRIA15CR55 TOP
[2018-11-05] MEDS ORDERED: FERR134T PO (03:48)
[2018-11-05 03:49] VITALS: BP 115/63; PULSE 73; RESP 18
[2018-11-05] MEDS ORDERED: BUTORPHANOL 1 MG INJ IV PRN (05:00)
[2018-11-05] MEDS ORDERED: OXYTOCIN 30 UNITS/LR 500 ML IV SCH ×2 (05:00→08:30)
[2018-11-05] MEDS ORDERED: CARBOPROST 250 MCG INJ IM PRN (05:00)
[2018-11-05] MEDS ORDERED: METHYLERGONOVINE 0.2 MG INJ IM PRN (05:00)
[2018-11-05] MEDS ORDERED: LIDOCAINE 1% (MPF) 30 ML INJ INJ PRN (05:00)
[2018-11-05] MEDS ORDERED: MISOPROSTOL 200 MCG TAB PR PRN (05:00)
[2018-11-05] MEDS ORDERED: IBUPROFEN 600 MG TAB PO PRN (05:00)
[2018-11-05] MEDS ORDERED: BUTORPHANOL 2 MG INJ IV PRN (05:00)
[2018-11-05] MEDS ORDERED: OXYTOCIN 30 UNITS/LR 500 ML IV PRN (05:00)
--- NOTE | 2018-11-05 05:01 | TRIAGE ---
OB Triage Datetime Report Generated by CPN: 11/05/2018 05:00 Datetime: 11/05/2018 04:25 Stage of : OB Triage Datetime: 11/05/2018 04:18 Membrane Status: Intact Datetime: 11/05/2018 04:15 Stage of : OB Triage Labor Evaluation Frequency: 3-5 Monitor Mode: External Duration (sec)2399: 40-50 Quality: Moderate Pattern: Normal: <= 5 Contractions in 10 Minutes Resting Tone [place]: Relaxed Heart Rate FHR Baseline Rate: 140 Monitor Mode: External US FHR Baseline Changes: No Baseline Change Variability: Moderate 6-25 bpm Accelerations: 15X15 Decelerations: None Category: Category I Vaginal Exam Dilatation (cms): 3.0 Effacement (%): 80 Station: -2 Exam By: Tramaine Avitia Membrane Status: Intact Vaginal Bleeding: None Cervix, Consistency: Soft Cervix, Position: Posterior Presentation 'A': Cephalic Datetime: 11/05/2018 03:51 Time of Arrival: 11/05/2018 03:30 EGA: 40.0 Arrived By: Ambulatory Arrived From: Home Chief Complaint: c/o ucs Movement: Present Contractions: Regular Time Contractions Began: 11/05/2018 02:30 Contractions: Q5 Rupture of Membranes: Denies Vaginal Bleeding: None Vaginal Discharge: Denies Recent Sexual Intercouse: Denies Abdominal Trauma: Not Applicable Patient Complaints: Contractions Time Provider Notified: 11/05/2018 04:25 Provider Notified: Dr Cartwright Initial Plan: EFM,SVE Datetime: 11/05/2018 03:43 Stage of : OB Triage Maternal Assessment Level of Consciousness: Fully Conscious Headache: Denies Blurred Vision: No Respiratory Effort: Unlabored Nausea/Vomiting: Denies RUQ Epigastric Pain: Denies Facial Edema: None Monitor Mode: External Quality: Moderate Pattern: Normal: <= 5 Contractions in 10 Minutes Resting Tone [place]: Relaxed Heart Rate FHR Baseline Rate: 140 Monitor Mode: External US Pain Assessment Pain Scale: 7 Pain Presence: Intermittent Pain Type: Contraction Pain Location: Abdomen; Back Datetime: 11/03/2018 14:12 Fall Risk Assessment Fall Score: 0 Fall Risk Score Definition: No Risk: No action required Datetime: 11/03/2018 14:09 EGA: 39.5
[2018-11-05] MEDS: LACTATED RINGER'S 1,000 ML IV SCH ×4 (05:23→22:53)
--- NOTE | 2018-11-05 19:12 | HP ---
Date/Time of Note Date/Time of Note DATE: 11/05/18 TIME: 19:10 OB - History Hx of Present Free Text/Dictation 23 years old P0010 at 40 weeks in labor GBS negative cervix 8/80%-2 arom thin mec FH reassuring Plan routine intrapartum care Last Menstrual Period: Jan 29, 2018 Estimated Due Date: Nov 05, 2018 : 2 Para: 0 Care: Good Care Ultrasounds: Normal mid trimester US Past Family/Social History * Past Medical, Surgical, Family and Obstetric Histories reviewed from chart. OB Admission Exam Vital Signs Vital Signs Vital Signs Date Temp Pulse Resp B/P (MAP) Pulse Ox O2 O2 Flow FiO2 Time Delivery Rate 11/05/18 98.3 73 18 115/63 Room Air 03:49 (80) Last 72 hours Lab Results CBC & BMP 11/05/18 05:00 PATRICIA WAHL M.D. Nov 05, 2018 19:12
[2018-11-05] MEDS ORDERED: MINERAL OIL LIGHT 10 ML VIAL TOP ONE (19:30)
[2018-11-05] MEDS: LACTATED RINGER'S 1,000 ML IV PRN (21:25)
--- NOTE | 2018-11-05 21:26 | PREAC ---
Date/Time of Note Date/Time of Note DATE: 11/05/18 TIME: 21:25 Anesthesia Eval and Record Evaluation Time Pre-Procedure Interview DATE: 11/05/18 TIME: 21:25 Age 23 Sex female NPO: 8 hrs Preoperative diagnosis IUP Planned procedure L&D Epidural Past Medical History Past Medical History: None Surgery & Anesthesia Issues No known issue Meds Anticoagulation: No Beta Candie within 24 hr: No Reason Beta Candie not given: Pt. not on B-Candie Active Scripts Vit W-Ca,Fe,FA(<1 mg) ( Vitamins) 1 Each Tablet, 1 EACH PO DAILY, #30 TAB Prov:MARYSE ANAYA 08/10/17 Reported Medications Ferrous Sulfate (Iron) 134 Mg Tablet, 134 MG PO DAILY, TAB 11/05/18 Discontinued Scripts Acetaminophen* (Tylophen*) 500 Mg Capsule, 1 CAP PO Q6H PRN for PAIN AND OR ELEVATED TEMP, #20 CAP Prov:MARYSE ANAYA F 08/10/17 Acetaminophen* (Tylophen*) 500 Mg Capsule, 1 CAP PO Q6H PRN for PAIN AND OR ELEVATED TEMP, #20 CAP Prov:ABBIE CARABALLO NP 07/31/17 Diphenhydramine Hcl* (Benadryl*) 50 Mg Cap, 50 MG PO BEDSIDE MEDICATION PRN for ITCHING, #30 Prov:ELIAN SCHERER PA-C 05/26/15 Triamcinolone Acetonide (Triamcinolone Acetonide) 0.1% - 15 Gm Cream.gm., 1 APPLIC TOP BID for 7 Days, TUB applya thin layer to affected areas twice a day for 1-2 weeks. Do not apply on face Prov:ELIAN SCHERER PA-C 05/26/15 Triamcinolone Acetonide* (Kenalog*) 0.5%-15GM Cr, 1 APPLIC TOP BID, #1 EA Prov:ABBIE CARABALLO NP 04/28/15 Hydroxyzine Hcl* (Hydroxyzine Hcl*) 25 Mg Tablet, 25 MG PO Q8H PRN for ITCHING, #30 TAB Prov:ABBIE CARABALLO NP 04/28/15 Current Medications Lactated Ringer's 1,000 ml @ 125 mls/hr Q8H IV Last administered on 11/05/18at 20:11; Admin Dose 125 MLS/HR; Start 11/05/18 at 04:38 Butorphanol Tartrate (Stadol) 1 mg Q2H PRN IV .PAIN; Start 11/05/18 at 05:00 Butorphanol Tartrate (Stadol) 2 mg Q2H PRN IV .PAIN; Start 11/05/18 at 05:00 Lidocaine (Xylocaine 1% (Mpf)) 30 ml ONCE PRN INJ .EPISIOTOMY; Start 11/05/18 at 05:00 Oxytocin/Lactated Ringer's 500 ml @ 500 mls/hr ONCE POST IV ; Start 11/05/18 at 05:00 Oxytocin/Lactated Ringer's 500 ml @ 125 mls/hr POST IV ; Start 11/05/18 at 05:00 Ibuprofen (Motrin) 600 mg ONCE PRN PO .PAIN 1-5; Start 11/05/18 at 05:00 Lactated Ringer's 1,000 ml @ 2,000 mls/hr Q30M PRN IV .ANESTHESIA; Start 11/05/18 at 04:38 Oxytocin/Lactated Ringer's 500 ml @ 0 mls/hr ONCE PRN IV .VAGINAL BLEEDING; Start 11/05/18 at 05:00 Methylergonovine Maleate (Methergine) 0.2 mg ONCE PRN IM .VAGINAL BLEEDING; Start 11/05/18 at 05:00 Carboprost Tromethamine (Hemabate) 250 mcg ONCE PRN IM .VAGINAL BLEEDING; Start 11/05/18 at 05:00 Misoprostol (Cytotec) 1,000 mcg ONCE PRN MI .VAGINAL BLEEDING; Start 11/05/18 at 05:00 Oxytocin/Lactated Ringer's 500 ml @ 0 mls/hr FOR AUGMENTATION IV Last administered on 11/05/18at 10:00; Admin Dose 1 MLS/HR; Start 11/05/18 at 08:30 Meds reviewed: Yes Allergies Coded Allergies: No Known Allergy (Unverified , 11/05/18) Allergies Reviewed: Yes Labs/Studies Labs Reviewed: Reviewed by anesthesiologist Result Diagram: 11/05/18 0500 Laboratory Tests 11/05/18 05:00 Blood Bank Test 11/05/18 05:00 Antibody Screen NEGATIVE Blood Type A POSITIVE Rh Immune Globulin Candidate NO test: Positive Studies: ECG Pre-procedure Exam Last vitals Vital Signs Date Temp Pulse Resp B/P (MAP) Pulse Ox O2 O2 Flow FiO2 Time Delivery Rate 11/05/18 98.3 73 18 115/63 Room Air 03:49 (80) Airway: Adequate mouth opening, Adequate thyromental dist Mallampati: Mallampati II Teeth: Normal Lung: Normal Heart: Normal ASA Physical Status ASA physical status: 2 Emergency: None Planned Anesthetic Neuraxial: Epidural Planned Pain Management Epidural Pre-operative Attestations Prior to commencing anesthesia and surgery, the patient was re-evaluated, there was verification of: *The patient's identity *The results of appropriate recent lab work and preoperative vital signs *The above evaluation not changing prior to induction *Anesthetic plan, risk benefits, alternative and complications discussed with patient/family; questions answered; patient/family understands, accepts and wishes to proceed. JASON PAYTON MD Nov 05, 2018 21:26
[2018-11-05] MEDS ORDERED: ROPIVACAINE 0.2% 100 ML ONE (21:39)
[2018-11-06] MEDS ORDERED: OXYTOCIN 30 UNITS/LR 500 ML IV SCH ×2 (01:00→01:12)
[2018-11-06] MEDS ORDERED: METHYLERGONOVINE 0.2 MG INJ IM PRN ×2 (01:00→01:30)
[2018-11-06] MEDS ORDERED: MISOPROSTOL 200 MCG TAB PR PRN ×2 (01:00→01:30)
[2018-11-06] MEDS ORDERED: OXYTOCIN 30 UNITS/LR 500 ML IV PRN ×2 (01:00→01:30)
[2018-11-06] MEDS ORDERED: CARBOPROST 250 MCG INJ IM PRN ×2 (01:00→01:30)
[2018-11-06] MEDS ORDERED: CEFAZOLIN 2 GM/50 ML (PMX) 50 ML IVPB SCH (01:00)
--- NOTE | 2018-11-06 01:11 | QN ---
Documentation Comment see H&P [id number] PATRICIA WAHL M.D. Nov 06, 2018 01:11
[2018-11-06] MEDS ORDERED: HYDROCODONE/APAP (5/325) TAB PO PRN (01:30)
[2018-11-06] MEDS ORDERED: NACL 0.9% 3 ML SYG IV SCH (01:30)
[2018-11-06] MEDS ORDERED: KETOROLAC 30 MG INJ IM PRN (01:30)
[2018-11-06] MEDS: LACTATED RINGER'S 1,000 ML IV PRN (01:31)
[2018-11-06] MEDS: CEFAZOLIN 1 GM/50 ML (PMX) 50 ML IVPB SCH ×3 (01:59→18:25)
[2018-11-06] MEDS ORDERED: OXYTOCIN 10 UNIT INJ ONE ×2 (02:08→02:26)
[2018-11-06] MEDS ORDERED: ONDANSETRON 4 MG INJ ONE (02:08)
[2018-11-06] MEDS ORDERED: PHENYLephrine (100 MCG/ML) 5ML SYG ONE (02:21)
[2018-11-06] MEDS ORDERED: morphine SULFATE/PF (10 MG/10 ML) INJ ONE (02:23)
[2018-11-06] MEDS ORDERED: MIDAZOLAM 1 MG/ML 2 ML INJ ONE (02:35)
--- NOTE | 2018-11-06 02:45 | QN ---
Documentation Comment see op note [id number] PATRICIA WAHL M.D. Nov 06, 2018 02:45
[2018-11-06] MEDS ORDERED: DIPHENHYDRAMINE 50 MG INJ IV PRN (03:00)
[2018-11-06] MEDS ORDERED: ONDANSETRON 4 MG INJ IV PRN (03:00)
[2018-11-06] MEDS ORDERED: morphine 2 MG INJ IV PRN (03:00)
[2018-11-06] MEDS ORDERED: NALOXONE (0.4 MG/ML) INJ IV PRN (03:00)
--- NOTE | 2018-11-06 03:04 | PAC ---
Date/Time of Note Date/Time of Note DATE: 11/06/18 TIME: 03:03 Post-Anesthesia Notes Post-Anesthesia Note Last documented vital signs Vital Signs Date Temp Pulse Resp B/P (MAP) Pulse Ox O2 O2 Flow FiO2 Time Delivery Rate 11/05/18 98.3 73 18 115/63 Room Air 03:49 (80) Activity: WNL Respiratory function: WNL Cardiovascular function: WNL Mental status: Baseline Pain reasonably controlled: Yes Hydration appropriate: Yes Nausea/Vomiting absent: Yes Comments BP:112/56,P:78, Spo2:100%,T:98,8 JASON PAYTON MD Nov 06, 2018 03:04
[2018-11-06] MEDS: OXYTOCIN 30 UNITS/LR 500 ML IV SCH ×2 (03:26→07:43)
--- NOTE | 2018-11-06 03:46 | HP ---
DATE OF ADMISSION: 11/05/2018 HISTORY OF PRESENT ILLNESS: The patient is a 23-year-old para 0-0-0-0 who came to the hospital yeste rday in labor, was progress to fully dilation; however, now with arrest of descent for primary C-sect ion. PAST MEDICAL HISTORY: None. PAST SURGICAL HISTORY: None. ALLERGIES: NO KNOWN ALLERGIES. SOCIAL HISTORY: She denies any toxic habits. FAMILY HISTORY: Noncontributory. OBSTETRICAL HISTORY: Consistent with 1 spontaneous . REVIEW OF SYSTEMS: Within normal limits. LABORATORY TESTS: Consistent with HIV negative, hepatitis C negative, T4, T3, TSH was normal. Blood type is A positive, antibody negative. Pap smear was normal, rubella immune, VDRL nonreactive. Uri ne culture was negative. Gonorrhea and chlamydia was negative. GCT was 108. GBS was negative. CBC upon admission consistent with WBC of 7.8, hemoglobin of 11, hematocrit of 33.4 and platelets of 140 . heart was reassuring. Meredith every 2 to 3 minutes. PHYSICAL EXAMINATION: VITAL SIGNS: Within normal limits. Temperature of 98.3, heart rate of 73, respiratory 18, blood pre ssure 115/63. GENERAL: She appeared to be in no apparent distress. HEART: Regular rate and rhythm. LUNGS: Clear to auscultation bilaterally. ABDOMEN: Gravid, nontender. EXTREMITIES: +1, +2 edema bilaterally. PELVIC: Consistent with full dilation, 0 to +1 station. ASSESSMENT AND PLAN: 1. This is a 23-year-old with a para 0-0-1-0, at 40 weeks and 1 day, arrest of descent for primary C -section. Patient understands the risks of the procedure such as risk of bleeding, infection, damage to internal organs, risk of transfusion, anesthesia. She understands the benefits of the procedure will be the decrease of and maternal morbidity and mortality secondary to arrest of descent. S he understands the alternative would be to continue vaginal trial. All questions answered. Dictated By: PATRICIA WAHL MD, RA/ROD Conf#: [id number] DID#: [id number]
[2018-11-06] MEDS: KETOROLAC 30 MG INJ IV PRN ×2 (03:50→19:10)
--- NOTE | 2018-11-06 04:02 | OPR ---
DATE OF OPERATION: 11/06/2018 PREOPERATIVE DIAGNOSIS: A 23-year-old with para 0-0-1-0, at 40 weeks and 1 day, arrest of descent. POSTOPERATIVE DIAGNOSIS: A 23-year-old with para 0-0-1-0, at 40 weeks and 1 day, arrest of descent. PROCEDURE: Primary via Pfannenstiel skin incision. SURGEON: Patricia Wahl MD. SURGICAL DRESSING MAKER: Dr. Whelan. ANESTHESIA: Epidural anesthesia by Dr. Grant. FINDINGS: Boy, Apgars 8 and 9, vertex, OP presentation. Normal appearing ovaries, tubes and uterus. DISPOSITION: Stable, back to recovery room. COMPLICATIONS: None. ESTIMATED BLOOD LOSS: 700 mL. URINE OUTPUT: 250 mL clear urine at the end of the procedure. One dose of Methergine was given for uterine atony. ANTIBIOTICS GIVEN: 2 grams of Ancef. PROCEDURE: After risks, benefits and alternatives of the procedure were discussed with the patient. The patient signed consent was taken to the operating room where epidural anesthesia was found to be adequate. She was prepped and draped in normal sterile fashion in the dorsal supine position with a leftward tilt. A Pfannenstiel skin incision was then made with the scalpel and carried throughout t he underlying layer of the fascia with the Bovie. The fascia was then incised medially, extended lat erally using Bovie instrument. The fascia was then superiorly and inferiorly from the rect us abdominis muscles using the Bovie instrument. Rectus abdominis muscles were then latera lly, peritoneum entered sharply, stretched laterally manually and sharply. Bladder flap was then cre ated using the Metzenbaum scissors. Bladder blade was then inserted to protect the bladder. Uterus incision created using the scalpel and carried laterally manually. Infant was then removed without a ny complications. Nose and mouth were suctioned. Cord clamped and cut. was handed off to e waiting nurse. Cord blood collected. The placenta was removed manually. Uterus was exteriorized and cleared of all clots and debris. Uterine atony was noted. One dose of Methergine was given. Ut erus incision was then repaired using #1 chromic stitch in a running locked fashion. Good approximat ion and good hemostasis was noted. Gutters were then cleared of all clots and debris. Uterus was th en placed back into the pelvis. Rectus abdominis muscles were then reapproximated using 2-0 chromic stitch interrupted figure. Fascia was then reapproximated using #1 Vicryl stitch in a running fashio n. Subcutaneous layer irrigated and dried. Subcutaneous layer was then reapproximated using 2-0 andre in stitch in interrupted figure. Skin was then closed using the stapler. Abdominal pads placed on t he incision to create tamponade. All instrument count, lap count and needle count found to be correc t x3. The patient was taken back to the recovery room in stable condition awakened. Dictated By: PATRICIA WAHL MD, RA/ROD Conf#: [id number] DID#: [id number]
[2018-11-06 06:13] VITALS: BP 109/67; PULSE 86; RESP 18
[2018-11-06 08:00] VITALS: BP 107/69; PULSE 95; RESP 18
[2018-11-06] MEDS: LACTATED RINGER'S 1,000 ML IV SCH ×2 (11:53→20:31)
[2018-11-06 12:00] VITALS: BP 108/65; PULSE 100; RESP 18
[2018-11-06 16:00] VITALS: BP 100/59; PULSE 101; RESP 18
[2018-11-06 20:00] VITALS: BP 105/53; PULSE 105; RESP 18
[2018-11-07] VITALS: BP 103/58; PULSE 98; RESP 20
[2018-11-07] MEDS: KETOROLAC 30 MG INJ IV PRN (00:29)
[2018-11-07 04:00] VITALS: BP 103/63; PULSE 89; RESP 20
[2018-11-07] MEDS: LACTATED RINGER'S 1,000 ML IV SCH ×2 (04:38→12:38)
[2018-11-07 08:00] VITALS: BP 103/55; PULSE 93; RESP 18
[2018-11-07] MEDS: HYDROCODONE/APAP (5/325) TAB PO PRN (10:27)
[2018-11-07] MEDS ORDERED: LANOLIN HPA 1 PKT TOP PRN (12:00)
[2018-11-07 16:00] VITALS: BP 114/57; PULSE 82; RESP 18
--- NOTE | 2018-11-07 17:02 | QN ---
Documentation Comment see d/c note [id number] PATRICIA WAHL M.D. Nov 07, 2018 17:02
--- NOTE | 2018-11-07 17:03 | DS ---
Date/Time of Note Date/Time of Note DATE: 11/07/18 TIME: 17:02 Discharge Summary Admission/Discharge Info Admit Date/Time Nov 05, 2018 at 04:25 Discharge Date/Time 11/08/18 Patient Condition: Good Procedures C/S Hospital Course 11/06/18 Primary CS Home Meds Active Scripts Vit W-Ca,Fe,FA(<1 mg) ( Vitamins) 1 Each Tablet, 1 EACH PO DAILY, #30 TAB Prov:MARYSE ANAYA 08/10/17 Reported Medications Ferrous Sulfate (Iron) 134 Mg Tablet, 134 MG PO DAILY, TAB 11/05/18 Discontinued Scripts Acetaminophen* (Tylophen*) 500 Mg Capsule, 1 CAP PO Q6H PRN for PAIN AND OR ELEVATED TEMP, #20 CAP Prov:MARYSE ANAYA 08/10/17 Acetaminophen* (Tylophen*) 500 Mg Capsule, 1 CAP PO Q6H PRN for PAIN AND OR ELEVATED TEMP, #20 CAP Prov:ABBIE CARABALLO NP 07/31/17 Diphenhydramine Hcl* (Benadryl*) 50 Mg Cap, 50 MG PO BEDSIDE MEDICATION PRN for ITCHING, #30 Prov:ELIAN SCHERER PA-C 05/26/15 Triamcinolone Acetonide (Triamcinolone Acetonide) 0.1% - 15 Gm Cream.gm., 1 APPLIC TOP BID for 7 Days, TUB applya thin layer to affected areas twice a day for 1-2 weeks. Do not apply on face Prov:ELIAN SCHERER PA-C 05/26/15 Triamcinolone Acetonide* (Kenalog*) 0.5%-15GM Cr, 1 APPLIC TOP BID, #1 EA Prov:ABBIE CARABALLO NP 04/28/15 Hydroxyzine Hcl* (Hydroxyzine Hcl*) 25 Mg Tablet, 25 MG PO Q8H PRN for ITCHING, #30 TAB Prov:ABBIE CARABALLO NP 04/28/15 Primary Care Provider Not On Staff Doctor Time spent on discharge: < 30 minutes Pending Labs Laboratory Tests Test 11/07/18 06:15 Lab Scanned Report [facility] [id number] PATRICIA WAHL M.D. Nov 07, 2018 17:03
--- NOTE | 2018-11-07 17:25 | OPR ---
DATE OF OPERATION: 11/07/2018 The patient had a on 11/06/2018. Please see operative note for the surgery. Postop day #1 , the patient was doing well. Vital signs stable. CBC was stable. She was encouraged to ambulate a nd use pain medication p.r.n. pain. Postop day #2, the patient will be discharged home with prescrip tion for [place] and Motrin and she will follow up with me on Saturday for staple removal. Dictated By: PATRICIA WAHL MD, RA/ROD Conf#: [id number] DID#: [id number]
[2018-11-07 20:10] VITALS: BP 106/62; PULSE 70; RESP 17
[2018-11-08] MEDS: HYDROCODONE/APAP (5/325) TAB PO PRN (00:30)
[2018-11-08 04:20] VITALS: BP 106/51; PULSE 72; RESP 19
[2018-11-08] MEDS: IBUPROFEN 600 MG TAB PO PRN ×2 (06:06→13:29)
[2018-11-08 08:00] VITALS: BP 99/59; PULSE 71; RESP 18
[2018-11-08 15:49] VITALS: BP 109/53; PULSE 68; RESP 18
[2018-11-08 19:50] VITALS: BP 103/55; PULSE 80; RESP 18
[2018-11-09 04:00] VITALS: BP 117/80; PULSE 78; RESP 19
[2018-11-09 09:15] VITALS: BP 123/59; PULSE 89; RESP 16
[2018-11-09 16:00] VITALS: BP 111/77; PULSE 90; RESP 16
--- NOTE | 2018-11-17 11:24 | DELSUM ---
Delivery Summary A-C Datetime Report Generated by CPN: 11/17/2018 11:20 DELIVERY PERSONNEL Alteration Worker: Monae Manjarrez MATERNAL INFORMATION Delivery Anesthesia: Epidural Medications in Delivery: SEE ANESTHESIA RECORDS Delivery QBL (ml): 700 Placenta Cultured: No Maternal Complications: Prolong Labor >20Hrs; Prolong 2nd Stage >2Hrs LABOR SUMMARY EDC: 11/05/2018 00:00 No. Babies in Womb: 1 Attempted: No Labor Anesthesia: Epidural LABOR INFORMATION Reason for Induction: Not Applicable Onset of Labor: 11/05/2018 02:30 Complete Dilatation: 11/05/2018 22:51 Oxytocin: Augmentation Group B Beta Strep: Negative Antibiotics # of Doses: ANCEF 2GM Antibiotics Time of Last Dose: 11/06/2018 01:59 Steroids Given: None Reason Steroids Not Administered: Not Applicable MEMBRANES Membranes Rupture Method: Artificial Rupture of Membranes: 11/05/2018 19:06 Length of Rupture (hr): 7.30 Amniotic Fluid Color: Light Meconium Amniotic Fluid Amount: Moderate Amniotic Fluid Odor: None STAGES OF LABOR Stage 1 hr: 20 Stage 1 min: 21 Stage 2 hr: 3 Stage 2 min: 33 Stage 3 hr: 0 Stage 3 min: 1 Total Time in Labor hr: 23 Total Time in Labor min: 55 VAGINAL DELIVERY Sponge Count Correct: Yes; Vaginal Sweep Performed CSECTION DELIVERY Primary Indication: Arrest of Descent Other Primary Indication: intolerance to labor/pushing Secondary Indication: Nonreassuring Stat CSection Urgency: Non Elective CSection Incidence: Primary Labor: Labor Elective: N/A CSection Incision: Lower Uterine Transverse BABY A INFORMATION Delivery Date/Time: 11/06/2018 02:24 Method of Delivery: Born in Route : No : N/A Forceps: N/A Vacuum Extraction: Successful Shoulder Dystocia : N/A SHOULDER DYSTOCIA BABY A Infant Delivery Date/Time: 11/06/2018 02:24 PRESENTATION/POSITION BABY A Presentation: Cephalic Cephalic Presentation: Vertex Vertex Position: Left Occipital Posterior Breech Presentation: N/A PLACENTA INFORMATION BABY A Placenta Delivery Time : 11/06/2018 02:25 Placenta Method of Delivery: Manual Removal Placenta Status: Delivered SCORES BABY A Heart Rate 1 min: >100 bpm Resp Effort 1 min: Good Cry Reflex Irritability 1 min: Cough/Sneeze/Pulls Away Muscle Tone 1 min: Some Flexion of Extrem Color 1 min: Blue/Pale Resuscitation Effort 1 min: Tactile Stimulation; Oxygen SCORE 1 MIN: 7 Heart Rate 5 min: >100 bpm Resp Effort 5 min: Good Cry Reflex Irritability 5 min: Cough/Sneeze/Pulls Away Muscle Tone 5 min: Active Motion Color 5 min: Body [place], Extremit Blue Resuscitation Effort 5 min: Tactile Stimulation SCORE 5 MIN: 9 INFORMATION BABY A Gestational Age at Delivery: 40.1 Gestational Status: Full Term- 39- 40.6 Weeks Outcome : Liveborn Condition : Stable Infant Sex: Male IDENTIFICATION/MEDS BABY A ID Band Number: [id number] ID Band Location: Right Leg; Left Arm Sensor Applied: Yes Sensor Number: [id number] Sensor Location : Cord Clamp Vitamin K Given : Not Given Erythromycin Given: Not Given WEIGHT/LENGTH BABY A Infant Birthweight (gm): 3410 Weight (lb): 7 Infant Weight (oz): 8 Infant Length (in): 19.00 Length (cm): 48.26 CORD INFORMATION BABY A No. Cord Vessels: 3 Nuchal Cord : Around Neck x1, Loose Cord Blood Taken: Yes Banking/Donate Info: NONE Infant Suction: Mouth; Nose; Pharynx ASSESSMENT BABY A Complications: Decreased Variability; Multiple Late Decels; Multiple Variable Decels; [place] m Complications- Other: LIGHT MEC AT TIME OF AROM; THICK MEC NOTED AT DELIVERY Physical Findings at Delivery: Caput Succedaneum; Molding of the Head Physical Findings- Other: MEC STAINING NOTED ON UMBILICAL CORD; DELEE SUCTION 1ML THICK MEC _ MUCUS Respirations: Appears Normal [employer] Called : No Care By: RENT COLLECTOR _ RT Transferred To: Remains with Mother
== END 2018-11-09 17:35 | disposition home or self-care (01) | DRG 788 ==
LOC: OBT 03:34 → L-D 03:36 → OBT 04:25 → L-D 08:46 → PP1 11-06 05:38
PROVIDERS: ADMIT Obstetrics & Gynecology; ATTEND Obstetrics & Gynecology
PROC: 10D00Z1 Extraction of Products of Conception, Low, Open Approach (ICD-10-PCS; principal; 2018-11-06 02:00)
DX: O62.1 Secondary uterine inertia (principal); Z3A.40 40 weeks gestation of pregnancy; Z37.0 Single live birth
CPT/HCPCS: 62319; 85025; 85610; 85730; 86592; 86850; 86900; 86901; 87340; 99464; G0463; J0690; J1885; J2210; J2250; J2274; J2370; J2405; J2590; J2795; J7120